=== PATIENT | female | born 1990 | race Two or more races ===

== ENCOUNTER 2016-11-07 22:45 | Emergency (ER) | payer SELFPAY ==
[~2016-11-07] VITALS: Ht 154.9 cm; Wt 65.0 kg
[2016-11-08 03:09] VITALS: BP 131/89
== END 2016-11-08 05:30 | disposition home or self-care (01) ==
LOC: ER 11-08 03:53
DX: F33.9 Major depressive disorder, recurrent, unspecified (principal); R03.0 Elevated blood-pressure reading, without diagnosis of hypertension
CPT/HCPCS: 99283